=== PATIENT | male | born 1965 | race Caucasian/White ===

== ENCOUNTER → 2016-07-21 | Outpatient (CLI) | payer BC ==
[~2016-07-21] MED LIST: ATOR20TA PO; OLME40TA3 PO; SULF-221 PO
[2016-07-21 12:35] VITALS: BP 131/81
--- NOTE | 2016-07-21 12:35 | Urgent Care T Sheet Gen (E) ---
Intake General Temperature (Fahrenheit): 98.2 Pulse: 97 Blood Pressure Systolic: 131 Blood Pressure Diastolic: 81 Respirations: 20 SPO2: 97 Description of Symptoms Patient presents with probable infection in the L eye. Patient states a bug flew into it a few days ago. States he struggled to get it all out. On Wednesday, patient noticed some redness and swelling along the lower lid along nasal aspect. No fever. States the eye has been drainage and there was some mattering in the lashes this morning. States his nose has been running a lot over the past few days. no meds. History of Present Illness Allergies: Coded Allergies: No Known Drug Allergies (Unverified , 01/22/15) Home Meds Active Scripts Sulfamethoxazole/Trimethoprim (Sulfamethoxazole/Trimethoprim DS 800mg/160mg)1 Each Tablet1 Each PO BID #14 TAB Prov:MAXI VELÁZQUEZ 07/21/16 Reported Medications Atorvastatin (Lipitor)20 Mg [id number] Mg PO HS 01/22/15 Olmesartan Medoxomil (Benicar)40 Mg [id number] Mg PO DAILY 01/22/15 Respiratory Constitutional Symptoms: No syptoms reported EENTM: No Eye pain, No Blurred vision, Eye tearing Respiratory: No symptoms reported Cardiovascular: No symptoms reported Gastrointestinal/Abdominal: No symptoms reported All Other Systems Reviewed Remaining Systems: All other systems reviewed with negative findings Past Dfmobps-Nsungk-Kcucid Hx Surgeries/Hospitalizations Hospitalization/Surgery Hx: EEG Respiratory Respiratory History: None Cardiovascular Cardiovascular History: Hypertension, Hypercholesterolemia Neuro/Muscular Neuro/Muscular History: None Genitouinary Genitourinary History: None Gastrointestinal GI/Endocrine History: None Diabetes Diabetes: No Integumentary Integumentary History: None Cancer History of Cancer?: No Physical Exam Physical Exam General Appearance: WD/WN No apparent distress Eyes, Ears, Nose, Throat Ex: PERRL/EOMI (L lower eyelid is red, swollen and warm along the nasal aspect. I don't see a stye anywhere. No drainage or mattering in the eye.) TMs normal Pharynx normal Departure Urgent Care Impression Impression: Primary Impression: Eye infection Qualified Code: H44.002 - Unspecified purulent endophthalmitis, left eye Departure Disposition: HOME OR SELF-CARE Condition: Stable Referrals: Randy Patel MD (PCP) Additional Instructions: Long discussion with patient regarding his symptoms and treatment. His conjunctiva is clear therefore I don't believe we need to treat with an eye drop. The nasal aspect of his L lower lid is red and swollen. No stye is seen on exam. I believe the bug has caused some sort of infection in the surrounding eye tissues. I have started him on Bactrim for treatment Warm compress Return as needed Patient understands DC instructions. All questions were answered. Scripts Sulfamethoxazole/Trimethoprim (Sulfamethoxazole/Trimethoprim DS 800mg/160mg)1 Each Tablet1 Each PO BID #14 TAB Prov:MAXI VELÁZQUEZ 07/21/16 End of report . MAXI VELÁZQUEZ July 21, 2016 12:11
== END ==
LOC: MHUC 11:48
PROVIDERS: ATTEND Physician Assistant
DX: H44.002 Unspecified purulent endophthalmitis, left eye (principal)
CPT/HCPCS: 99212